=== PATIENT | male | born 1960 | race Caucasian/White ===

== ENCOUNTER 2023-08-24 05:18 | Day surgery (SDC) | payer BC ==
[2023-08-18 12:01] LABS: BILIRUBIN,URINE NEGATIVE (Neg); CLARITY,URINE CLEAR (Clear); COLOR,URINE YELLOW (Yellow); GLUCOSE, URINE NEGATIVE (Neg); KETONES,URINE NEGATIVE (Neg); LEUKOCYTE ESTERASE ,URINE NEGATIVE (Neg); NITRITES, URINE NEGATIVE (Neg); OCCULT BLOOD,URINE NEGATIVE (Neg); PROTEIN,URINE NEGATIVE (Neg); UROBILINOGEN,URINE 0.2 E.U/dL (0.2-1.0)
[2023-08-18 12:20] LABS: UA COLLECTION TYPE VOIDED
[2023-08-18 12:24] LABS: BASOPHILS % (AUTO) 0.4 % (0-1); EOSINOPHILS # (AUTO) 0.2 X10'3 (0-0.9); EOSINOPHILS % (AUTO) 3.3 % (0-6); LYMPHOCYTES # (AUTO) 1.1 X10'3 (1.1-4.8); LYMPHOCYTES % (AUTO) 21.7 % (21-51); MEAN CORPUSCULAR HEMOGLOBIN 30.1 PG (27.0-31.0); MEAN CORPUSCULAR HGB CONC 33.8 g/dL (33.0-36.5); MEAN PLATELET VOLUME 8.6 FL (7.4-10.4); MONOCYTES # (AUTO) 0.5 X10'3 (0-0.9); MONOCYTES % (AUTO) 8.9 % (2-12); NEUTROPHILS # (AUTO) 3.5 X10'3 (1.8-7.7); NEUTROPHILS % (AUTO) 65.7 % (42-75); PRE OP HEMATOCRIT 42.4 % (42.0-52.0); PRE OP HEMOGLOBIN 14.3 g/dL (14.0-17.9); PRE OP PLATELET COUNT 202 X10'3 (140-440); PRE OP WHITE BLOOD COUNT 5.3 10'3 (4.8-10.8); RED BLOOD COUNT 4.76 X10'6 (4.70-6.10); RED CELL DISTRIBUTION WIDTH 14.4 % (11.5-14.5)
[2023-08-18 12:33] LABS: ALBUMIN/GLOBULIN RATIO 1.3 (1.1-1.5); ALKALINE PHOSPHATASE 67 IU/L (46-116); BLOOD UREA NITROGEN 25 MG/DL (7-18); BUN/CREATININE RATIO 19.8 (10.0-20.0); CALCIUM 8.9 MG/DL (8.5-10.1); CHLORIDE 107 MMOL/L (99-107); CREATININE 1.26 MG/DL (0.60-1.10); PRE OP ALT 35 U/L (30-65); PRE OP ANION GAP 9 (8-16); PRE OP AST 25 U/L (10-37); PRE OP GLUCOSE 112 MG/DL (70-104); PRE OP POTASSIUM 4.4 MMOL/L (3.4-5.1); PRE OP SODIUM 143 MMOL/L (135-145); TOTAL CARBON DIOXIDE 27.2 MMOL/L (24-32); TOTAL PROTEIN 7.2 G/DL (6.4-8.2); eGFR 58 ML/MIN
[2023-08-24] VITALS (12 sets, daily range): BP systolic 111–147; BP diastolic 63–97; PULSE 53–79; RESP 13–16; TEMP 98.3; O2SAT 94–100
[~2023-08-24] VITALS: Ht 188 cm; Wt 114.4 kg
[~2023-08-24 05:18] MED LIST: ASPI81TA52 PO; ATOR40TA72 PO; CLOP75TA34 PO; LISI10TA27 PO
[2023-08-24] MEDS: cefazolin 2gm/D5W 100mL 100 ML IV ONE (05:59)
[2023-08-24] MEDS: famotidine 20mg tablet PO ONE (06:21)
[2023-08-24] MEDS: ringers solution, lacted 1,000 ML IV SCH (06:22)
[2023-08-24] MEDS ORDERED: bacitracin 15gm ointment TP ONE (07:37)
[2023-08-24] MEDS ORDERED: BUPIVAcaine/PF 2.5mg/ml (0.25%) 10ml vial ONE (07:37)
[2023-08-24] MEDS ORDERED: cloNIDine hcl/PF 100mcg/ml inj ONE (08:06)
[2023-08-24] MEDS ORDERED: fentaNYL/PF 50MCG/1 ML 2ML syringe ONE (08:10)
[2023-08-24] MEDS ORDERED: midazolam 1 mg/ML 2ml injection ONE (08:12)
[2023-08-24] MEDS ORDERED: sevoflurane 250ml liquid IH ONE (08:12)
[2023-08-24] MEDS ORDERED: rocuronium 10mg/ml inj IV ONE (09:34)
[2023-08-24] MEDS ORDERED: propofol inj 20 ML IV ONE (09:34)
[2023-08-24] MEDS ORDERED: dexamethasone sod phosphate 4mg/ml inj. ONE (09:34)
[2023-08-24] MEDS ORDERED: ROPIVAcaine 0.5% (5mg/ml) 30ml vial ONE (09:34)
[2023-08-24] MEDS ORDERED: ondansetron/PF 4mg/2ml inj ONE (09:35)
[2023-08-24] MEDS ORDERED: neostigmine methylsulfate 1 MG/ML 10ml vial ONE (09:37)
[2023-08-24] MEDS ORDERED: glycopyrrolate 0.2mg/ml inj ONE (09:38)
[2023-08-24] MEDS: bacitracin 15gm ointment TP ONE (09:40)
[2023-08-24] MEDS ORDERED: proCHLORperazine 10 MG/2 ml inj IV PRN (10:20)
[2023-08-24] MEDS ORDERED: meperidine/PF 25mg/ml syringe IV PRN ×3 (10:20)
[2023-08-24] MEDS ORDERED: ondansetron/PF 4mg/2ml inj IV PRN (10:20)
[2023-08-24] MEDS ORDERED: ringers solution, lacted 1,000 ML IV SCH (10:20)
[2023-08-24] MEDS ORDERED: morphine 4 MG/ML inj SYRINge IV PRN (10:20)
[2023-08-24] MEDS ORDERED: morphine 2 MG/ML inj. syringe IV PRN (10:20)
== END 2023-08-24 11:30 | disposition home or self-care (01) ==
LOC: PAS 05:18
PROVIDERS: ATTEND Podiatrist Foot & Ankle Surgery
DX: S86.011A Strain of right Achilles tendon, initial encounter (principal); G47.30 Sleep apnea, unspecified; I10 Essential (primary) hypertension; I25.2 Old myocardial infarction; K21.9 Gastro-esophageal reflux disease without esophagitis; I25.10 Atherosclerotic heart disease of native coronary artery without angina pectoris; E66.9 Obesity, unspecified; Z68.32 Body mass index [BMI] 32.0-32.9, adult; Z79.82 Long term (current) use of aspirin; Z79.899 Other long term (current) drug therapy; Z95.5 Presence of coronary angioplasty implant and graft; Z98.890 Other specified postprocedural states; Z79.01 Long term (current) use of anticoagulants; Z72.89 Other problems related to lifestyle; G89.18 Other acute postprocedural pain; X58.XXXA Exposure to other specified factors, initial encounter; Y93.89 Activity, other specified; Y92.89 Other specified places as the place of occurrence of the external cause; Y99.8 Other external cause status
CPT/HCPCS: 27650; 36415; 64445; 80053; 81003; 82948; 85025; A6222; C1713; J0690; J0735; J1100; J2250; J2405; J2704; J2710; J2795; J3010; J3490; J7030; J7120; Z7506; Z7508; Z7512; A4215; A4618; A6253; A6449; A7000